=== PATIENT | female | born 1960 | race Caucasian/White ===

== ENCOUNTER → 2016-07-23 | Outpatient (CLI) | payer OTHER | LOC: FIMAGING 08:26 | PROVIDERS: ATTEND Orthopaedic Surgery | DX: Z01.818 Encounter for other preprocedural examination (principal); M17.12 Unilateral primary osteoarthritis, left knee ==

== ENCOUNTER 2016-08-13 06:02 | Inpatient (IN) | payer OTHER ==
[2016-08-13] MEDS ORDERED: LIDOCAINE 1% 5 ML SDV ID PRN (06:12)
[2016-08-13] MEDS ORDERED: LR 1,000 ML IV ONE (06:12)
[2016-08-13] MEDS ORDERED: ACETAMINOPHEN 325 MG TAB ONE (06:17)
[2016-08-13] MEDS ORDERED: FAMOTIDINE 20 MG TAB ONE (06:17)
[2016-08-13] MEDS ORDERED: CEFAZOLIN 2 GM/DEXTROSE/100 ML BAG IV ONE (06:17)
[2016-08-13] MEDS ORDERED: DEXAMETHASONE 4 MG/ML VIAL ONE ×2 (06:17→06:53)
[2016-08-13] MEDS ORDERED: LIDOCAINE 1% 5 ML SDV ONE (06:18)
[2016-08-13] MEDS ORDERED: VANCOMYCIN 1 GM VIAL IV ONE ×2 (06:32)
[2016-08-13] MEDS ORDERED: TRANEXAMIC ACID 3,000 MG/50 ML BAG IRR ONE (06:32)
[2016-08-13] MEDS ORDERED: fentaNYL 100 MCG/2 ML INJ ONE (06:53)
[2016-08-13] MEDS ORDERED: PROPOFOL/EMULSION 500 MG/50 ML BOTTLE IV ONE (06:53)
[2016-08-13] MEDS ORDERED: LIDOCAINE 2% 5 ML SDV ONE (06:53)
[2016-08-13] MEDS ORDERED: MIDAZOLAM 2 MG/2 ML VIAL ONE (07:03)
[2016-08-13] MEDS ORDERED: ONDANSETRON 4 MG/2 ML VIAL IVP PRN (07:11)
[2016-08-13] MEDS ORDERED: BISACODYL 10 MG SUPP PR PRN (07:11)
[2016-08-13] MEDS ORDERED: DIPHENOXYLATE/ATROPINE LOMOTIL 1 TAB PO PRN (07:11)
[2016-08-13] MEDS ORDERED: LACTULOSE 20 GM/30 ML UDCUP PO PRN (07:11)
[2016-08-13] MEDS ORDERED: POLYETHYLENE GLYCOL 3350 17 GM PKT PO PRN (07:11)
[2016-08-13] MEDS ORDERED: CYCLOBENZAPRINE 10 MG TAB PO PRN (07:11)
[2016-08-13] MEDS ORDERED: TEMAZEPAM 15 MG CAP PO PRN (07:11)
[2016-08-13] MEDS ORDERED: ONDANSETRON DISINTEGRATING 4 MG TAB PO PRN (07:11)
[2016-08-13] MEDS ORDERED: METOCLOPRAMIDE 10 MG/2 ML VIAL IVP PRN (07:11)
[2016-08-13] MEDS ORDERED: MAGNESIUM HYDROXIDE 30 ML UDCUP PO PRN (07:11)
[2016-08-13] MEDS ORDERED: diphenhydrAMINE 25 MG CAP PO PRN (07:11)
[2016-08-13] MEDS ORDERED: PHARMACY PAIN CONSULT 1 EA MISC PRN (07:11)
[2016-08-13] MEDS ORDERED: PROMETHAZINE HCL 25 MG SUPPR PR PRN (07:11)
[2016-08-13] MEDS ORDERED: LR 1,000 ML IV SCH (07:30)
[2016-08-13] MEDS ORDERED: BUPIVACAINE 0.5% 30 ML SDV ONE (07:53)
--- NOTE | 2016-08-13 08:32 | POSTOPPROG ---
Post Op Note Date of Operation: 08/13/16 Surgeon: Jhonny Atwood Account Installer: macrina atwood Anesthesiologist: dr. kessler Anesthesia: Spinal, Other (Specify) (adductor canal block) Pre-op Diagnosis: left knee OA Post-op Diagnosis: same Indication: left knee pain due to OA that failed conservative measures Procedure: L TKA Findings: severe knee OA Inf/Abcess present in the surg proc area at time of surgery?: No EBL: 50-100
[2016-08-13] MEDS: SENNOSIDES/DOCUSATE SODIUM TAB PO SCH ×2 (09:48→20:13)
[2016-08-13] MEDS ORDERED: TRANEXAMIC ACID 3,000 MG in NS 50 ML IRR ONE (10:00)
[2016-08-13] MEDS ORDERED: CHLORHEXIDINE GLUC HIBICLENS 118 ML BTL TP ONE (10:00)
[2016-08-13] MEDS ORDERED: ROPI/epiNEPH/KETOROLAC JOINT COCKTAIL IU ONE (10:00)
[2016-08-13] MEDS ORDERED: ACETAMINOPHEN 325 MG TAB PO ONE (10:00)
[2016-08-13] MEDS ORDERED: CEFAZOLIN 2 GM/DEXTR 100 ML IV ONE (10:00)
[2016-08-13] MEDS ORDERED: FAMOTIDINE 20 MG TAB PO ONE (10:00)
[2016-08-13] MEDS ORDERED: DEXAMETHASONE 4 MG/ML VIAL IVP ONE (10:00)
[2016-08-13] MEDS: oxyCODONE IR 5 MG TAB PO PRN ×5 (10:51→22:53)
[2016-08-13] MEDS: ACETAMINOPHEN 325 MG TAB PO SCH ×3 (12:21→22:54)
[2016-08-13] MEDS: ceFAZolin 2 GM/DEXTROSE 100 ML IV SCH ×2 (15:18→22:54)
[2016-08-13] MEDS: FAMOTIDINE 20 MG TAB PO SCH (20:13)
[2016-08-13] MEDS: ASPIRIN 325 MG TAB PO SCH (20:13)
[2016-08-14] MEDS: oxyCODONE IR 5 MG TAB PO PRN ×3 (04:19→12:07)
[2016-08-14 05:08] LABS: HEMATOCRIT 35.7 % (38.0-47.0); HEMOGLOBIN 11.9 g/dL (12.6-16.3)
[2016-08-14] MEDS: ACETAMINOPHEN 325 MG TAB PO SCH ×2 (05:11→12:08)
[2016-08-14 07:46] VITALS: BP 128/57; PULSE 53; RESP 16; TEMP 97.6; O2SAT 95
[2016-08-14] MEDS: FAMOTIDINE 20 MG TAB PO SCH (08:33)
[2016-08-14] MEDS: ASPIRIN 325 MG TAB PO SCH (08:33)
[2016-08-14] MEDS: SENNOSIDES/DOCUSATE SODIUM TAB PO SCH (08:33)
--- NOTE | 2016-08-14 09:55 | SOAPPROG ---
SOAP Progress Note Assessment/Plan: Assessment: Patient is doing well POD 1 s/p L TKA 1) Pain management: pain is well controlled on oral pain meds. 2) VTE ppx: recommend aspirin daily for 3 weeks, cont BRUCE and SCDs 3) Anemia: level is expected initially postop. Asymptomatic. Continue to monitor 4). D/c planning: d/c to home today pending release from PT Plan: 08/14/16 09:53 Subjective: Kasia is doing well today, denies SOB, chest pain and N/V. Objective: Vital Signs Temp Pulse Resp BP Pulse Ox 36.4 C 53 L 16 128/57 H 95 08/14/16 07:46 08/14/16 07:46 08/14/16 07:46 08/14/16 07:46 08/14/16 07:46 Laboratory Results 08/14/16 04:19 08/13/16 08/14/16 08/15/16 05:59 05:59 05:59 Intake Total 4525 1100 Output Total 2080 Balance 2445 1100 LLE: incision dressing is clean and dry, NVI, +pf/df ICD10 Worksheet Patient Problems: Problems Problem Status Onset Primary localized osteoarthritis of left knee Acute
--- NOTE | 2016-08-14 09:56 | GOP ---
[f rep st] OPERATIVE REPORT DATE OF OPERATION: 08/13/2016 SURGEON: Rey Olivares MD SENIOR SERVICE AIDE: Cande Olivares PA-C. ANESTHESIA: Spinal. PREOPERATIVE DIAGNOSIS: Left knee osteoarthritis. POSTOPERATIVE DIAGNOSIS: Left knee osteoarthritis. PROCEDURE PERFORMED: Left total knee arthroplasty. FINDINGS/PATHOLOGY: Severe lateral and patellofemoral osteoarthritis. ESTIMATED BLOOD LOSS: 30 cc INDICATIONS: This is a 56-year-old female with severe and progressive pain and deformity of the left knee unresponsive to conservative care. Risks and benefits of the surgical intervention were explained in detail. DESCRIPTION OF PROCEDURE: The patient was brought to the operative room and placed on the table in the supine position. Spinal anesthesia was induced without difficulty. A pneumatic tourniquet was applied about the left proximal thigh, and the leg was prepped and draped in a sterile fashion. The leg louis was applied. After exsanguination by elevation the tourniquet was inflated to 250 mm of mercury. Incision was made anterior medial from the tibial tuberosity to a point 2 cm proximal to the superior pole of the patella. Medial parapatellar arthrotomy was carried out from the superior pole of the patella and posteriorly in line with the fibers of the Type 2 VMO. The medial collateral ligament was elevated and the infrapatellar fat pad was resected. The patella was everted and the articular surface was excised. A 29 mm patellar button was placed. The distal femoral guide hole was drilled and the 6 degree alignment natalee was placed. A 10 mm distal femoral cut was made without difficulty. Attention was turned to the tibia and a standard 6 mm cut based on the medial tibial condyle was performed. The tibial articular surface was excised without difficulty. Attention was turned back to the femur and a size 3 femoral cutting block was positioned. Anterior, posterior, and chamfer cuts were made, followed by the intercondylar box cut. The knee was extended and the remnants of the medial and lateral meniscus were excised. The posterior capsule was injected with ropivacaine, epinephrine and Toradol. A size 3 MIS mini-keel tibial tray was positioned. Trial reduction was then carried out. There was excellent range of motion, alignment, and stability using the 9 mm polyethylene. All trials were then removed. The joint was thoroughly irrigated and carefully dried. Two packages of cement and 2 grams of vancomycin were mixed in the vacuum mixer and placed on the fixation surfaces of all surfaces of the components. The components were implanted and all excess cement was thoroughly removed. The permanent 11 mm polyethylene X3 was placed without difficulty. The tourniquet was deflated and all bleeders were coagulated. The wound was thoroughly irrigated and closed using interrupted sutures of 2-0 Vicryl for the joint capsule. The subcu was closed with 3-0 Vicryl and the skin with 4-0 Monocryl. Dermabond and Steri-Strips were applied followed by a compressive dressing. The patient was then moved from the operating room to the recovery room in good condition, having tolerated the procedure well. /[id number]/MODL MTDD
--- NOTE | 2016-08-14 14:57 | GDS ---
[f rep st] DISCHARGE SUMMARY ADMISSION DIAGNOSIS: Left knee osteoarthritis. DISCHARGE DIAGNOSIS: Left knee osteoarthritis. PROCEDURE: Left total knee arthroplasty, robot assisted. VTE PROPHYLAXIS: Aspirin recommended for 3 weeks daily. BRIEF DESCRIPTION OF HOSPITAL STAY: Patient was admitted for an elective joint arthroplasty. The p atient tolerated the procedure well and has passed physical therapy. The patient was given appropri ate antibiotic prophylaxis and venous thromboembolism prophylaxis. The patient's pain was well cont rolled on oral pain medication, patient was holding down food, and had urinated. Decision was made to discharge the patient. The patient was given post-operative prescriptions pre-operatively. PLAN: To follow up with Dr. Olivares at [facility] in 2 to 3 weeks. /[id number]/MODL
== END 2016-08-14 12:53 | disposition home or self-care (01) | DRG 470 ==
LOC: F3N 06:02
PROVIDERS: ADMIT Orthopaedic Surgery; ATTEND Orthopaedic Surgery
PROC: 0SRD0J9 Replacement of Left Knee Joint with Synthetic Substitute, Cemented, Open Approach (ICD-10-PCS; principal; 2016-08-13 07:15)
DX: M17.12 Unilateral primary osteoarthritis, left knee (principal)
CPT/HCPCS: 97110-GP; 97116-GP; 97161-GP; 97165-GO; 97530-GP; C1713; J0171; J0690; J1100; J1885; J2250; J2704; J2795; J3010; J3370

== ENCOUNTER → 2016-11-06 | Outpatient (CLI) | payer OTHER | LOC: FIMAGING 09:11 | DX: Z12.31 Encounter for screening mammogram for malignant neoplasm of breast (principal) | CPT/HCPCS: G0202 ==